=== PATIENT | female | born 1950 | race Caucasian/White ===

== ENCOUNTER 2020-03-24 09:11 | Day surgery (SDC) | payer BC, SELFPAY ==
[~2020-03-24] VITALS: Ht 157.5 cm; Wt 68.9 kg
[2020-03-24] MEDS ORDERED: DEXAMETHASONE SOD PHOSPHATE 4 MG/ML VIAL IVP ONE (13:08)
[2020-03-24] MEDS ORDERED: WATER FOR IRRIGATION,STERILE 1,000 ML IRRIG.SOLN IR ONE (13:08)
[2020-03-24] MEDS ORDERED: LR 1,000 ML IV.SOLN IV ONE (13:08)
[2020-03-24] MEDS ORDERED: ISOFLURANE 15 MIN GAS INH ONE (13:08)
[2020-03-24] MEDS ORDERED: NS IRRIG SOLN 1000 ML IR ONE (13:08)
[2020-03-24] MEDS ORDERED: OXYMETAZOLINE HCL 0.05% NASAL SPRAY NS ONE (13:08)
[2020-03-24] MEDS ORDERED: NS 1000 ML IV.SOLN IV ONE (13:08)
[2020-03-24] MEDS ORDERED: SUGAMMADEX SODIUM 200 MG/2 ML VIAL IV ONE (13:08)
[2020-03-24] MEDS ORDERED: PROPOFOL 200MG/ 20ML VIAL (DIPRIVAN) IV ONE (13:08)
[2020-03-24] MEDS ORDERED: KETOROLAC TROMETHAMINE 30 MG VIAL IVP ONE (13:08)
[2020-03-24] MEDS ORDERED: fentaNYL CITRATE 250 MCG/5 ML AMP IV ONE (13:08)
[2020-03-24] MEDS ORDERED: MIDAZOLAM HCL 5 MG/5 ML VIAL IVP ONE (13:08)
[2020-03-24] MEDS ORDERED: ROCURONIUM BROMIDE 10 MG/ML (ZEMURON) IV ONE (13:08)
[2020-03-24] MEDS ORDERED: LIDOCAINE 2%, 20 ML MDV INJ ONE (13:08)
[2020-03-24] MEDS ORDERED: ONDANSETRON HCL 4 MG/2 ML VIAL IVP ONE (13:08)
[2020-03-24] MEDS ORDERED: MIDAZOLAM HCL 2 MG/2 ML VIAL (VERSED) IVP PRN (14:00)
[2020-03-24] MEDS ORDERED: METOCLOPRAMIDE HCL 10 MG/2 ML VIAL IVP PRN (14:00)
[2020-03-24] MEDS ORDERED: HYDROmorphone 1 MG INJ. 1 MG/ML AMPUL IVP PRN ×2 (14:00)
[2020-03-24] MEDS ORDERED: LR 1,000 ML IV SCH (14:00)
[2020-03-24] MEDS ORDERED: hydrALAZINE HCL 20 MG/ML VIAL IVP PRN (14:00)
[2020-03-24] MEDS ORDERED: MEPERIDINE HCL/PF 25 MG/ML DISP.SYRIN IVP PRN (14:00)
[2020-03-24] MEDS ORDERED: ONDANSETRON HCL 4 MG/2 ML VIAL IVP PRN (14:00)
[2020-03-24 16:54] VITALS: BP_SYST 147
== END 2020-03-24 17:45 | disposition home or self-care (01) ==
LOC: SDS 09:11 → SMU 09:13 → SDS 17:45
PROVIDERS: ATTEND Otolaryngology
DX: J34.89 Other specified disorders of nose and nasal sinuses (principal); D38.5 Neoplasm of uncertain behavior of other respiratory organs; J34.3 Hypertrophy of nasal turbinates; J33.9 Nasal polyp, unspecified; N95.9 Unspecified menopausal and perimenopausal disorder; J30.1 Allergic rhinitis due to pollen; Z79.899 Other long term (current) drug therapy; Z20.828 Contact with and (suspected) exposure to other viral communicable diseases
CPT/HCPCS: 30140; 30520; 31240; 88305; 88311; C9399; J1100; J1885; J2001; J2250; J2405; J2704; J3010; J3465; J7030; J7120; U0003